=== PATIENT | male | born 1945 | race Caucasian/White ===

== ENCOUNTER 2024-07-06 01:03 | Day surgery (SDC) | payer MEDICARE, SELFPAY ==
[2024-06-30 15:32] VITALS: BMI 30.8
--- NOTE | 2024-06-30 15:45 | PC.NURSE ---
Report to the Outpatient Waiting Room, entrance under the green pavilion located off [facility], at time _0600_ on date _[phone]_. Planned Procedure Time: _0730_.? Time changes happen often and if your time is changed the preop area will call you the afternoon before. - You and your visitor will be asked to self-screen and do not enter if you have any COVID symptoms. Please call surgeon if you need to reschedule. - A mask is optional within the hospital at this time. Patients may have clear liquids (water, carbonated beverages, clear teas, apple juice) until 3 hours prior to surgery with a maximum of 20 ounces. - No food from midnight until time of surgery and no smoking Take only the following medications with a SIP of water on the morning of surgery: __Amiodarone, Sinemet, Carvidilol, Advair and if needed Meclizine or Hydrocodone. DO NOT STOP ANY OF YOUR OTHER PRESCRIPTION MEDICATIONS PRIOR TO SURGERY EXCEPT THE FOLLOWING Medications to discontinue per physician ____Brody says was instructed to hold Xarelto 48 hours prior to surgery. Date to take last hijf____[phone] Please no make-up, nail indonesian, hairspray, perfume, deodorant, or body powder the day of surgery.? No jewelry (including any body piercings) or valuables the day of surgery, leave them at home.? Please take a shower or bath the night before, or the morning of, surgery with an antibacterial soap.? Wear comfortable, loose fitting clothing.? - Jewelry must be removed prior to entering the operating room.? Rings and piercings that are not removed may be cut off. - The hospital will not accept responsibility for valuables.? - Please leave all valuables, including medications, at home the day of surgery. If you are going home after surgery, a licensed mixer driver must drive you home.? - NO public transportation without another adult if you receive anesthesia. - We recommend that an adult stay with you for 24 hours following discharge. - We also recommend that you do not drive, make important decision, drink alcoholic beverages, or take any drugs that were not prescribed by your health care provider for at least 24 hours after your discharge time. Follow any additional instructions given to you from your surgeon. Telephone instructions given to __Bill__and asked if any additional questions and then verbalized understanding. Patient advised to call surgeon office or pre surgery nurse liaison [phone] if any additional questions.
--- NOTE | 2024-06-30 16:01 | PC.NURSE ---
Report to the Outpatient Waiting Room, entrance under the green pavilion located off [facility], at time _0600_ on date _[phone]_. Planned Procedure Time: _0730_.? Time changes happen often and if your time is changed the preop area will call you the afternoon before. - You and your visitor will be asked to self-screen and do not enter if you have any COVID symptoms. Please call surgeon if you need to reschedule. - A mask is optional within the hospital at this time. - No food or drink from midnight until time of surgery and no smoking Take only the following medications with a SIP of water on the morning of surgery: __Amiodarone, Sinemet, Carvidilol, Advair and if needed Meclizine and or Hydrocodone. DO NOT STOP ANY OF YOUR OTHER PRESCRIPTION MEDICATIONS PRIOR TO SURGERY EXCEPT THE FOLLOWING Medications to discontinue per physician Brody says he was instructed to hold Xarelto 48 hours prior to surgery.____ Date to take last zhdj___[id number] Please no make-up, nail fijian, hairspray, perfume, deodorant, or body powder the day of surgery.? No jewelry (including any body piercings) or valuables the day of surgery, leave them at home.? Please take a shower or bath the night before, or the morning of, surgery with an antibacterial soap.? Wear comfortable, loose fitting clothing.? . - Jewelry must be removed prior to entering the operating room.? Rings and piercings that are not removed may be cut off. - The hospital will not accept responsibility for valuables.? - Please leave all valuables, including medications, at home the day of surgery. If you are going home after surgery, a licensed courtesy driver must drive you home.? - NO public transportation without another adult if you receive anesthesia. - We recommend that an adult stay with you for 24 hours following discharge. - We also recommend that you do not drive, make important decision, drink alcoholic beverages, or take any drugs that were not prescribed by your health care provider for at least 24 hours after your discharge time. Follow any additional instructions given to you from your surgeon. Telephone instructions given to ___Bill___and asked if any additional questions and then verbalized understanding. Patient advised to call surgeon office or pre surgery nurse liaison [phone] if any additional questions.
[2024-07-06] VITALS (9 sets, daily range): BP systolic 108–154; BP diastolic 56–89; PULSE 46–60; RESP 12–18; TEMP 36.2–36.6; O2SAT 97–100; BMI 30.6
--- NOTE | ~2024-07-06 | XR_ITS ---
EXAMINATION: XR fluoroscopy no charge DATE: 07/06/2024 08:29 INDICATION: Compression fracture of L2 with delayed healing. TECHNIQUE: 6 intraoperative fluoroscopic views of lumbar spine were obtained. I was not present. Fluo roscopy exposure time was 4 minutes 22 seconds. COMPARISON: None. FINDINGS: There is a compression fracture of L2 with changes of vertebroplasty. IMPRESSION: 1. Compression fracture of L2 with changes of vertebroplasty. Reviewed, dictated and finalized at location A.
--- NOTE | 2024-07-06 05:04 | WPDHPUPDATE1 ---
History and Physical Update Update Date/Time: 07/06/24 05:04 History and Physical has been reviewed, including an updated exam of the patient. There are NO changes in the patient's condition. Risks, benefits, and alternatives have been discussed and questions answered. Patient agrees to proceed with procedure.
--- NOTE | 2024-07-06 05:06 | W.PM.PROC2 ---
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 Surgeon Eliseo Marcelino MD [employer]k [employer]inter None. Anesthesia General (GETA with local anesthetic infiltration in the prone position.) Indications Osteoporotic vertebral compression fracture with greater than 25% deformity in the absence of neurologic deficit or significant central canal stenosis. Description of Procedure INFORMED CONSENT: Risks, benefits and alternatives to the procedure were discussed in detail with the patient who expressed explicit understanding and consent to proceed. Patient was informed verbally and in written form regarding the risks associated with the procedure including the low risk of serious local or systemic infection, bleeding/bruising, allergic reaction, pulmonary embolus/edema, extravasation of cement requiring surgical intervention, worsening fracture, nerve or organ injury, paralysis, procedural site pain or discomfort, worsening pain and/or mobility, failure to treat and/or disfigurement. The patient expressed explicit understanding and consent to proceed. All materials required for the procedure were available prior to procedure start. Site and side were marked prior to procedure and confirmed in the presence of the unsedated patient. PROCEDURE IN DETAIL: After full informed consent was obtained, appropriate IV access was confirmed by Anesthesia without difficulty. The patient was escorted to the operative theater. Supplemental oxygen was initiated to maintain O2 saturation between 92-99%. Careful positioning was undertaken and ASA standard monitors were applied and checked routinely throughout the case. Prophylactic antibiotics were administered prior to procedure start. Patient was placed in the prone position in optimal extension using pillows and the thoracolumbar spine was prepared and draped in the usual sterile manner using tinted ChloraPrep scrub and allowed to dry completely for at least 3 minutes. Fluoroscopy in the AP and lateral position was used with perfect linear projections at the L2 level to identify/confirm the procedural level and presence of deformity. Percutaneous trocar was introduced from a rightward approach (transpedicular approach) via a small stab skin incision made at the entry site using a #11 scalpel following adequate anesthesia via infiltration of a 1:1 admixture of 2% PF lidocaine with epinephrine and 0.5% PF bupivacaine with a 2 inch 27-gauge needle after negative aspiration for blood or body fluid. Anesthesia was extended to periosteum at the intended procedural level with a 3.5 inch 22g Quincke spinal needle. A 10-gauge trocar with a lion tip was introduced through the skin incision and docked on the right posterior pedicle of L2 in the superolateral (11 o'clock) position. Under live fluoroscopy while alternating between AP and lateral views, the trocar was advanced intermittently in the anterior, medial and inferior directions using a metal surgical mallet, taking care to advance only in the AP view, using lateral views to confirm depth and direction. In the AP view, as the tip of the trocar approached (but did not violate) the medial, inferior border of the pedicle, lateral view was utilized to confirm advancement of the trocar through the pedicle and into the posterior third of the vertebral body. Using the manager engagement-provided bone biopsy device, an intravertebral core biopsy was obtained from each level treated and sent in an appropriately-labeled sterile specimen cup with formalin for pathological analysis. the trocar was then advanced in the lateral view with appropriate positioning confirmed by alternating AP and lateral views until the tr
--- NOTE | 2024-07-06 06:18 | ECG_ITS ---
Test Date: 2024-07-06 06:39:35 Measurements Intervals [place] Rate: 55 P: 38 WV: 202 QRS: -3 QRSD: 100 T: 20 QT: 427 QTc: 411 Interpretive Statements SINUS BRADYCARDIA EARLY PRECORDIAL R/S TRANSITION BORDERLINE ECG No previous ECG available for comparison Electronically Signed On 07-06-2024 09:35:57 CDT by Stanley Huerta D.O.
[2024-07-06] MEDS: LACTATED RINGERS 1,000 ML 30 ML IV CONT (06:30)
--- NOTE | 2024-07-06 07:10 | WPDANESEPPF ---
Anes - Initial Pre Proc Eval Procedure: Operation Date: 07/06/24 07:30 Proposed Procedures p Balloon Assisted Vertebral Augmentation with Intraosseous Bone Biopsy at L2 under Fluoroscopic Guidance - Eliseo Marcelino MD Date/Time: 07/06/24 07:10 Surgeon: Eliseo Marcelino MD Pre Op Diagnosis: osteoprodic compression fx with delayed healing Patient Data Age: 79 Gender: M Height: 1.68 m Weight: 86 kg Last Vital Signs Temp 36.6 C 07/06/24 06:40 Pulse 60 07/06/24 06:40 Resp 16 07/06/24 06:40 BP 134/89 07/06/24 06:40 Pulse Ox 98 07/06/24 06:40 O2 Del Method Room Air 07/06/24 06:40 Allergies Allergy/AdvReac Type Severity Reaction Status Date / Time No Known Allergies Allergy Verified 06/30/24 15:26 Home Medications Medication Instructions Recorded Confirmed Type amiodarone 100 mg tablet 100 mg PO DAILY 06/30/24 06/30/24 History aspirin 81 mg chewable tablet 81 mg PO DAILY 06/30/24 07/06/24 History xdqhltd-dmudmpmuudhvj-wvixxnch 250 1 tablet PO Q4-6H PRN Pain 06/30/24 06/30/24 History mg-250 mg-65 mg tablet carbidopa 25 mg-levodopa 100 mg 1 tablet PO QID 06/30/24 06/30/24 History tablet carvedilol 12.5 mg tablet 12.5 mg PO Q12H 06/30/24 06/30/24 History diphenoxylate-atropine 2.5 1 tablet PO QID PRN Diarrhea 06/30/24 06/30/24 History mg-0.025 mg tablet fluticasone 100 mcg-salmeterol 50 1 inh inhalation Q12H 06/30/24 06/30/24 History mcg/dose blistr powdr for inhalation (Advair Diskus) hydrocodone 7.5 mg-acetaminophen 1 tablet PO Q8H PRN Pain 06/30/24 06/30/24 History 325 mg tablet meclizine 25 mg tablet 25 mg PO BID PRN Dizziness Or 06/30/24 06/30/24 History Vertigo omeprazole 20 mg tablet,delayed 20 mg PO DAILY 06/30/24 06/30/24 History release potassium chloride 20 mEq 20 meq PO DAILY 06/30/24 06/30/24 History tablet,extended release(part/cryst) rivaroxaban 20 mg tablet (Xarelto) 20 mg PO DAILY 06/30/24 06/30/24 History ropinirole 3 mg tablet 3 mg PO TID 06/30/24 06/30/24 History tamsulosin 0.4 mg capsule 0.4 mg PO HS 06/30/24 06/30/24 History trazodone 150 mg tablet 150 mg PO DAILY 06/30/24 06/30/24 History Patient hx anesthesia problems: other (hallucinations) Family hx anesthesia problems: none Results Review: All pre-operative results and documents have been reviewed as part of the pre-operative evaluation. [facility] Past Medical History Medical History Arthritis Cancer COPD (chronic obstructive pulmonary disease) Gallbladder disorder GERD (gastroesophageal reflux disease) Hernia Hypertension IBS (irritable bowel syndrome) Lung cancer Migraine Retained gallstones following laparoscopic cholecystectomy Surgical History Surgical History History of hip surgery Family History Family History Mother Hypertension Father No problems noted. Social History Social History Smoking packs per day: 2 Smoking cigarettes per day: 40.0 Years smoked: 50 Smoking pack-years: 100.00 Smoking status: Unknown if ever smoked Smoking end date: 06/30/12 Do You Feel Safe in your Home?: Yes Lack of Transportation: No Lack of Food: Never True Current Housing: I Have Housing Concerned About Future Housing: No Difficulty Paying Gas/Electric Bills: No Difficulty Paying for Meds: No Currently Unemployed: No Education: Master's Degree or Higher Difficulty w/ Childcare or Family Care: No Living arrangements: with family Spiritual care concerns: No Anes - Eval Final PreProcedure Day of Procedure 07/06/24 07:10 Patient weight: obese Heart: bradycardia Lungs: decreased breath sounds Airway: Mallampati scale class II Neurological: alert and oriented Last oral intake: >/= 8 hours ASA cl
[2024-07-06] MEDS: ceFAZolin 2 GM/D5W 50 ML 2 GM/50 ML BAG IVPB (07:43)
[2024-07-06] MEDS: BUPIVACAINE/EPINEPHRINE 0.5% 10 ML VIAL INFILTRATE (08:00)
[2024-07-06] MEDS: LIDOCAINE HCL 2% PF INJ 5 ML VIAL 10 ML INFILTRATE (08:00)
[2024-07-06] MEDS: fentaNYL CITRATE INJ (*CRX) 100 MCG/2 ML VIAL 25 MCG IV PUSH ×2 (09:01→09:12)
[2024-07-06] MEDS: oxyCODONE HCL (*CRX) 5 MG TAB IR PO (09:42)
== END 2024-07-06 10:40 | disposition home or self-care (01) ==
PROVIDERS: PCP Emergency Medicine; Visit Provider Anesthesiology Pain Medicine
PROC: (CPT 22514; principal; 2024-07-06 07:30)
DX: S32.020G Wedge compression fracture of second lumbar vertebra, subsequent encounter for fracture with delayed healing (principal); D75.89 Other specified diseases of blood and blood-forming organs; M48.062 Spinal stenosis, lumbar region with neurogenic claudication; M47.817 Spondylosis without myelopathy or radiculopathy, lumbosacral region; M80.08XA Age-related osteoporosis with current pathological fracture, vertebra(e), initial encounter for fracture; G89.29 Other chronic pain; I10 Essential (primary) hypertension; K21.9 Gastro-esophageal reflux disease without esophagitis; K58.9 Irritable bowel syndrome, unspecified; I48.0 Paroxysmal atrial fibrillation; J44.9 Chronic obstructive pulmonary disease, unspecified; K82.9 Disease of gallbladder, unspecified; G20.C Parkinsonism, unspecified; E66.9 Obesity, unspecified; Z68.30 Body mass index [BMI] 30.0-30.9, adult; Z79.82 Long term (current) use of aspirin; Z79.51 Long term (current) use of inhaled steroids; Z79.891 Long term (current) use of opiate analgesic; Z98.890 Other specified postprocedural states; Z87.891 Personal history of nicotine dependence; Z85.118 Personal history of other malignant neoplasm of bronchus and lung; W19.XXXD Unspecified fall, subsequent encounter
CPT/HCPCS: 22514; 88307; 88311; 93005; 99199; A9270; J0330; J0461; J0690; J1100; J2371; J2405; J2704; J3010; J7120; Q9965